=== PATIENT | male | born 2000 | race Caucasian/White ===

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

== ENCOUNTER 2019-11-14 18:21 | Emergency (ER) | payer SELFPAY ==
[~2019-11-14 18:21] MED LIST changes: +AMIT10 PO; +KETO10 PO
[2019-11-15] MEDS ORDERED: CEPH500 PO (16:56)
[2019-11-15] MEDS ORDERED: ONDA4ODT MM (16:56)
== END 2019-11-14 19:08 | disposition left against medical advice (07) ==
LOC: ER 18:21
DX: Z53.21 Procedure and treatment not carried out due to patient leaving prior to being seen by health care provider (principal)